=== PATIENT | female | born 1965 | race American Indian/Alaskan Native ===

== ENCOUNTER 2018-05-03 18:56 | Emergency (ER) | payer SELFPAY ==
[2018-05-03 19:37] VITALS: BP 128/83
[2018-05-03] MEDS ORDERED: NACL 0.9% 1000 ML 1,000 ML IV ONE (19:37)
[2018-05-03 20:12] LABS: Basophils # (Auto) 0.1 K/mm3 (0.0-0.1); Basophils % (Auto) 1.2 % (0.0-1.8); Eosinophils # (Auto) 0.1 K/mm3 (0.0-0.4); Eosinophils % (Auto) 0.9 % (0.0-4.3); Hematocrit 31.8 % (30.3-42.9); Hemoglobin 10.7 gm/dl (10.1-14.3); Lymphocytes # (Auto) 2.4 K/mm3 (1.2-5.4); Lymphocytes % (Auto) 27.5 % (13.4-35.0); Mean Corpuscular HGB Conc 34 % (30-34); Mean Corpuscular Volume 81 fl (79-97); Monocytes # (Auto) 0.6 K/mm3 (0.0-0.8); Monocytes % (Auto) 6.4 % (0.0-7.3); Platelet Count 372 K/mm3 (140-440); Red Blood Count 3.94 M/mm3 (3.65-5.03); Red Cell Distribution Width 14.2 % (13.2-15.2)
[2018-05-03 20:47] LABS: Alanine Aminotransferase 10 units/L (7-56); Albumin 3.8 g/dL (3.9-5); BUN/Creatinine Ratio 18; Blood Urea Nitrogen 11 mg/dL (7-17); Calcium 9.1 mg/dL (8.4-10.2); Hemolysis Index 50
[2018-05-04 01:16] LABS: Bilirubin,Urine NEG (Negative); Blood,Urine SM (Negative); Color,Urine Yellow (Yellow); Mucus,Urine 3+ /HPF; Protein,Urine <15 mg/dL mg/dL (Negative)
[2018-05-04] MEDS ORDERED: LEVSIN SL SL ONE (01:33)
[2018-05-04] MEDS ORDERED: ZOFRAN ODT PO STA (01:33)
--- NOTE | 2018-05-04 03:38 | Cat Scan Report ---
FINAL REPORT PROCEDURE: CT ABD AND PELVIS W CONTRAST TECHNIQUE: Computerized axial tomography of the abdomen and pelvis was performed after the IV inject ion of iodinated nonionic contrast. HISTORY: DIFFUSE ABD PAIN COMPARISON: No prior studies are available for comparison. FINDINGS: Visualized lower thorax: No significant abnormality. Liver: Normal size and attenuation. There is a 1 centimeter cyst the in the right lobe of the liver. Spleen: Normal size and attenuation. Gallbladder and biliary system: Normal. Pancreas: Normal. Adrenals: Normal. Kidneys: Normal. GI tract: There is no bowel obstruction. There is mucosal thickening of the right colon which could i ndicate colitis. There is no obstruction. The stomach, small bowel and appendix are normal.. Lymph nodes and mesentery: There are borderline enlarged mesenteric lymph nodes which could be reacti ve.. Vasculature: Normal. Bladder: Normal. Reproductive organs: Uterus is unremarkable. There is a large cystic mass arising from the right ovar y with septations and nodular soft tissue components. The overall size is approximately 15.6 centimet ers. Cystic ovarian neoplasm not excluded. Peritoneum: There is no ascites, free air, abscess or adenopathy.. Musculoskeletal structures: No significant abnormality. Other: None. IMPRESSION: There is a 1 centimeter cyst the in the right lobe of the liver. There is no bowel obstruction. There is mucosal thickening of the right colon which could indicate co litis. There is no obstruction. The stomach, small bowel and appendix are normal.. There are borderline enlarged mesenteric lymph nodes which could be reactive.. Uterus is unremarkable. There is a large cystic mass arising from the right ovary with septations and nodular soft tissue components. The overall size is approximately 15.6 centimeters. Cystic ovarian n eoplasm not excluded.. There is no ascites, free air, abscess or adenopathy.
[2018-05-04] MEDS ORDERED: FLAGYL PO STA (04:28)
[2018-05-04] MEDS ORDERED: LEVAQUIN PO STA (04:28)
--- NOTE | 2018-05-04 05:09 | Emergency Department Report ---
ED Abdominal Pain HPI - General Chief Complaint: Abdominal Pain Stated Complaint: STOMACH SORE Time Seen by Provider: 05/04/18 00:15 Source: patient Mode of arrival: Ambulatory Limitations: No Limitations - History of Present Illness Initial Comments: 53-year-old female presents much department complaining of a one- month history of abdominal pain off and on in the crampy sore nature. Reports over the last week. The symptoms have been progressively worsening having a decreased appetite and some complications with bowel movements off and on. Reports no nausea, vomiting, fevers, chills, sweats, weight loss. Reports no bloody diarrhea. Reported hematemesis or hematochezia. No hematuria MD Complaint: abdominal pain Location: LUQ, RLQ Migration to: no migration Severity: moderate Severity scale (0 -10): 10 Quality: aching, sharp Consistency: intermittent Worsens With: nothing Associated Symptoms: denies: nausea, vomiting, fever, hematemesis, hematuria, anorexia, syncope - Related Data Previous Rx's Medication Instructions Recorded Last Taken Type Ciprofloxacin HCl [Cipro] 500 mg PO BID #28 tablet 05/04/18 Unknown Rx Ciprofloxacin HCl [Cipro] 500 mg PO BID #28 tablet 05/04/18 Unknown Rx Hyoscyamine Subl [Levsin Sl] 0.125 mg SL Q4HR PRN #16 tablet 05/04/18 Unknown Rx Hyoscyamine Subl [Levsin Sl] 0.125 mg SL Q4HR PRN #16 tablet 05/04/18 Unknown Rx Ondansetron [Zofran ODT TAB] 8 mg PO Q12HR #14 tab.rapdis 05/04/18 Unknown Rx metroNIDAZOLE [Flagyl] 500 mg PO ONCE #4 tab 05/04/18 Unknown Rx Allergies Allergy/AdvReac Type Severity Reaction Status Date / Time No Known Allergies Allergy Verified 05/03/18 19:37 ED Review of Systems ROS: Stated complaint: STOMACH SORE Other details as noted in HPI Constitutional: denies: chills, fever Eyes: denies: eye pain, eye discharge, vision change ENT: denies: ear pain, throat pain Respiratory: denies: cough, shortness of breath, wheezing Cardiovascular: denies: chest pain, palpitations Endocrine: no symptoms reported Gastrointestinal: abdominal pain. denies: nausea, diarrhea Genitourinary: denies: urgency, dysuria, discharge Musculoskeletal: denies: back pain, joint swelling, arthralgia Skin: denies: rash, lesions Neurological: denies: headache, weakness, paresthesias Psychiatric: denies: anxiety, depression Hematological/Lymphatic: denies: easy bleeding, easy bruising ED Past Medical Hx - Past Medical History Previous Medical History?: No Hx Asthma: Yes - Surgical History Past Surgical History?: No - Social History Smoking Status: Unknown if ever smoked Substance Use Type: None - Medications Home Medications: Home Medications Medication Instructions Recorded Confirmed Last Taken Type Ciprofloxacin HCl [Cipro] 500 mg PO BID #28 tablet 05/04/18 Unknown Rx Ciprofloxacin HCl [Cipro] 500 mg PO BID #28 tablet 05/04/18 Unknown Rx Hyoscyamine Subl [Levsin Sl] 0.125 mg SL Q4HR PRN #16 tablet 05/04/18 Unknown Rx Hyoscyamine Subl [Levsin Sl] 0.125 mg SL Q4HR PRN #16 tablet 05/04/18 Unknown Rx Ondansetron [Zofran ODT TAB] 8 mg PO Q12HR #14 tab.rapdis 05/04/18 Unknown Rx metroNIDAZOLE [Flagyl] 500 mg PO ONCE #4 tab 05/04/18 Unknown Rx ED Physical Exam - General Limitations: No Limitations General appearance: alert, in no apparent distress - Head Head exam: Present: atraumatic, normocephalic - Eye Eye exam: Present: normal appearance, PERRL, EOMI Pupils: Present: normal accommodation - ENT ENT exam: Present: normal exam, mucous membranes moist - Neck Neck exam: Present: normal inspection, full ROM. Absent: tenderness, lymphadenopathy - Respiratory Respiratory exam: Present: normal lung sounds bilaterally. Absent: respiratory distress, wheezes, rales, rhonchi, chest wall tenderness, accessory muscle use, decreased breath sounds, prolonged expiratory - Cardiovascular Cardiovascular Exam: Present: regular rate, normal rhythm. Absent: systolic murmur, diastolic murmur, rubs, gallop - GI/Abdominal GI/Abdominal exam: Present: soft, tenderness, guarding, normal bowel sounds. Absent: rebound, rigid, hypoactive bowel sounds, organomegaly, bruit, pulsatile mass - Extremities Exam Extremities exam: Present: normal inspection, normal capillary refill - Back Exam Back exam: Present: normal inspection - Neurological Exam Neurological exam: Present: alert, oriented X3 - Psychiatric Psychiatric exam: Present: normal affect, normal mood - Skin Skin exam: Present: warm, dry, intact, normal color. Absent: rash ED Course Vital Signs 05/03/18 05/03/18 05/03/18 19:20 19:25 23:56 Temperature 98.6 F 98.6 F Pulse Rate 101 H 99 H Respiratory 18 18 20 Rate Blood Pressure 128/83 128/83 O2 Sat by Pulse 96 97 99 Oximetry ED Medical Decision Making - Lab Data Result diagrams: 05/03/18 19:50 05/03/18 19:50 - Radiology Data CT scan shows colitis and complex right ovarian cyst - Medical Decision Making Physical patient in detail the findings on the CT scan and the need to follow-up with [facility] and gastroenterology. She expressed understanding and stated that she would. She was follow-up. Also advised on treatment plan. Due to the colitis and ovarian cyst pain. Critical care attestation.: If time is entered above; I have spent that time in minutes in the direct care of this critically ill patient, excluding procedure time. ED Disposition Clinical Impression: Abdominal pain, Colitis Disposition: DC-01 TO HOME OR SELFCARE Is pt being admited?: No Does the pt Need Aspirin: No Condition: Stable Instructions: Abdominal Pain (ED), Infectious Colitis (ED) Referrals: REGULO GALVAN MD [Primary Care Provider] - 3-5 Days [facility] [Provider Group] - 3-5 Days
== END 2018-05-04 05:36 | disposition home or self-care (01) ==
LOC: ED 18:56
DX: K52.9 Noninfective gastroenteritis and colitis, unspecified (principal); J45.909 Unspecified asthma, uncomplicated
CPT/HCPCS: 36415; 74177; 80053; 81001; 83690; 85025; 99284; Q9967; Q0162

== ENCOUNTER 2018-06-27 19:41 | Inpatient (IN) | payer SELFPAY ==
[2018-06-27] MEDS ORDERED: NACL 0.9% 1000 ML 1,000 ML IV ONE (20:20)
[2018-06-27 21:15] LABS: Basophils % (Auto) 0.5 % (0.0-1.8); Eosinophils # (Auto) 0.1 K/mm3 (0.0-0.4); Eosinophils % (Auto) 1.1 % (0.0-4.3); Hemoglobin 10.6 gm/dl (10.1-14.3); Lymphocytes # (Auto) 1.6 K/mm3 (1.2-5.4); Lymphocytes % (Auto) 18.6 % (13.4-35.0); Mean Corpuscular HGB Conc 33 % (30-34); Mean Corpuscular Volume 79 fl (79-97); Monocytes # (Auto) 0.8 K/mm3 (0.0-0.8); Monocytes % (Auto) 9.3 % (0.0-7.3); Platelet Count 479 K/mm3 (140-440); Red Blood Count 4.07 M/mm3 (3.65-5.03); Red Cell Distribution Width 15.9 % (13.2-15.2)
[2018-06-27 21:34] LABS: Alanine Aminotransferase 10 units/L (7-56); BUN/Creatinine Ratio 14; Blood Urea Nitrogen 7 mg/dL (7-17); Calcium 9.1 mg/dL (8.4-10.2); Hemolysis Index 3
--- NOTE | 2018-06-27 22:04 | Emergency Department Report ---
ED Abdominal Pain HPI - General Chief Complaint: Abdominal Pain Stated Complaint: ABD PAIN Time Seen by Provider: 06/27/18 21:52 Source: patient Mode of arrival: Ambulatory Limitations: No Limitations - History of Present Illness Initial Comments: Mrs. Orozco is a very pleasant 53 yo female who presents with 1 1/2 months of abdominal pain, distention, weight loss and constipation. Has had severe constipation since February. She can not recall her last bowel movement. Her weight has declined from 210 pounds to 165 pounds over the course of 2 months. She has poor appetite. Even water causes severe heart burn. She has severe RLQ pain worse with eating, constant. No PCP. In April, CT revealed mucosal thickening right colon. Treated for colitis with ciprofloxacin. MD Complaint: abdominal pain -: Gradual, month(s) (2) Location: LLQ Radiation: none Severity: severe Severity scale (0 -10): 10 Quality: cramping Consistency: constant Worsens With: eating Context: other (as per HPI) Associated Symptoms: nausea, vomiting, constipation - Related Data Previous Rx's Medication Instructions Recorded Last Taken Type Ciprofloxacin HCl [Cipro] 500 mg PO BID #28 tablet 05/04/18 Unknown Rx Ciprofloxacin HCl [Cipro] 500 mg PO BID #28 tablet 05/04/18 Unknown Rx Hyoscyamine Subl [Levsin Sl] 0.125 mg SL Q4HR PRN #16 tablet 05/04/18 Unknown Rx Hyoscyamine Subl [Levsin Sl] 0.125 mg SL Q4HR PRN #16 tablet 05/04/18 Unknown Rx Ondansetron [Zofran ODT TAB] 8 mg PO Q12HR #14 tab.rapdis 05/04/18 Unknown Rx metroNIDAZOLE [Flagyl] 500 mg PO ONCE #4 tab 05/04/18 Unknown Rx Allergies Allergy/AdvReac Type Severity Reaction Status Date / Time No Known Allergies Allergy Verified 05/03/18 19:37 ED Review of Systems ROS: Stated complaint: ABD PAIN Other details as noted in HPI Comment: All other systems reviewed and negative Constitutional: malaise, other (50 pound weight loss) Gastrointestinal: abdominal pain, nausea, constipation ED Past Medical Hx - Past Medical History Previous Medical History?: No Hx Asthma: Yes - Surgical History Past Surgical History?: No - Social History Smoking Status: Never Smoker Substance Use Type: None Other Social History: 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 - Medications Home Medications: Home Medications Medication Instructions Recorded Confirmed Last Taken Type Ciprofloxacin HCl [Cipro] 500 mg PO BID #28 tablet 05/04/18 Unknown Rx Ciprofloxacin HCl [Cipro] 500 mg PO BID #28 tablet 05/04/18 Unknown Rx Hyoscyamine Subl [Levsin Sl] 0.125 mg SL Q4HR PRN #16 tablet 05/04/18 Unknown Rx Hyoscyamine Subl [Levsin Sl] 0.125 mg SL Q4HR PRN #16 tablet 05/04/18 Unknown Rx Ondansetron [Zofran ODT TAB] 8 mg PO Q12HR #14 tab.rapdis 05/04/18 Unknown Rx metroNIDAZOLE [Flagyl] 500 mg PO ONCE #4 tab 05/04/18 Unknown Rx ED Physical Exam - General Limitations: No Limitations General appearance: alert, in no apparent distress - Head Head exam: Present: atraumatic, normocephalic - Eye Eye exam: Present: normal appearance - ENT ENT exam: Present: mucous membranes moist - Neck Neck exam: Present: normal inspection - Respiratory Respiratory exam: Present: normal lung sounds bilaterally. Absent: respiratory distress - Cardiovascular Cardiovascular Exam: Present: regular rate, normal rhythm. Absent: systolic murmur, diastolic murmur, rubs, gallop - GI/Abdominal GI/Abdominal exam: Present: soft, distended, normal bowel sounds. Absent: tenderness, guarding, rebound - Extremities Exam Extremities exam: Present: normal inspection - Back Exam Back exam: Present: normal inspection - Neurological Exam Neurological exam: Present: alert, oriented X3 - Psychiatric Psychiatric exam: Present: normal affect, normal mood - Skin Skin exam: Present: warm, dry, intact, normal color. Absent: rash ED Course Vital Signs 06/27/18 06/27/18 19:56 20:18 Temperature 99.4 F 99.4 F Pulse Rate 103 H 105 H Respiratory 18 18 Rate Blood Pressure 114/76 114/76 O2 Sat by Pulse 99 96 Oximetry ED Medical Decision Making - Lab Data Result diagrams: 06/27/18 20:52 06/27/18 20:52 - Radiology Data Radiology results: report reviewed - Medical Decision Making Mrs. Orozco is a 53 yo female who presents with 50 pound weight loss over [address] a/p reveals ovarian malignancy, very large tumor. Admitted to hospitalist service. I discussed case with Dr. Catalan. I provided bridging orders. Critical care attestation.: If time is entered above; I have spent that time in minutes in the direct care of this critically ill patient, excluding procedure time. ED Disposition Clinical Impression: Ovarian cancer, Abdominal pain, Weight loss, Obstipation Disposition: OP ADMIT IP TO THIS HOSP Is pt being admited?: Yes Does the pt Need Aspirin: No Condition: Stable
[2018-06-27 22:10] LABS: Bilirubin,Urine NEG (Negative); Blood,Urine MOD (Negative); Color,Urine Amber (Yellow); Mucus,Urine FEW /HPF
[2018-06-27] MEDS ORDERED: MORPHINE ONE (22:41)
[2018-06-27] MEDS ORDERED: ZOFRAN ONE (22:41)
[2018-06-27] MEDS ORDERED: ZOFRAN IV ONE (23:02)
[2018-06-27] MEDS ORDERED: MORPHINE IV ONE (23:02)
[2018-06-28] MEDS ORDERED: MORPHINE IV ONE ×2 (01:15→03:06)
[2018-06-28] MEDS ORDERED: MORPHINE ONE (01:18)
--- NOTE | 2018-06-28 04:39 | Cat Scan Report ---
PROCEDURE: CT ABDOMEN PELVIS W CON TECHNIQUE: Routine axial imaging was obtained of the abdomen and pelvis following the intravenous in jection of iodinated contrast. Sagittal and coronal reconstructions were reviewed. Comparison is made to the study of 05/04/2018. HISTORY: abdominal pain weight loss obstipation COMPARISONS: 05/04/2018 FINDINGS: The lung bases are clear. Pleural fluid is not seen. The liver is normal size and reveals a stable 8 mm low-density lesion in the right hepatic lobe. Whet her this represents a small cyst or hemangioma is uncertain. The gallbladder and biliary tree appear normal. The pancreas, spleen and adrenal glands appear normal. The kidneys enhance normally. There is no evidence of hydronephrosis. In the pelvis above the bladder is a cystic mass measuring 16.2 x 12.2 x 15.8 cm. Along the periphery of the mass anteriorly is a soft tissue component which is partially calcified. There are septations within this lesion. It has enlarged since the previous study. It compresses the uterus and bladder. It displaces bowel loops laterally. The bowel loops are not distended. The appendix is not enlarged. There is a small amount of free fluid in the right paracolic gutter. The abdominal aorta is normal in caliber. The portal vein enhances normally. The skeletal structures otherwise do not show acute crowell ges. IMPRESSION: Large predominantly cystic septated mass in the pelvis with peripheral solid component and calcificat ions which has enlarged since the previous study. This is an ovarian malignancy until proven otherwis e. Small amount of free fluid along the right paracolic gutter. No evidence of bowel obstruction or ileus or appendicitis. 8 mm low-density focus in the right hepatic lobe unchanged from the previous study. Whether this repr esents a small cyst or hemangioma is uncertain.. This document is electronically signed by Sam Jose MD., June 28 2018 04:36:29 AM ET
--- NOTE | 2018-06-28 07:35 | History and Physical Report ---
History of Present Illness Date of examination: 06/28/18 Chief complaint: Abdominal pains History of present illness: Patient is a 53 yo woman with a history of Asthma who presented to [facility] ED with Abdominal pains. Initially she came here on 05/04/2018 with abdominal pains and had CT abd/pelvis with IV contrast that showed 1 cm Right Liver lesion, right colitis, borderline enlarged mesenteric lymph nodes and large cystic mass from the right ovary, cystic ovarian neoplasm not excluded. She was discharged home with ciprofloxacin and instructions to follow up with shank stitcher and GI. Now, she comes back to this ED on the night of 06/27/2018 with progressively worsening severe, LLQ/flank, nonradiating, crampy constant abdominal pains aggravated by eating associated by early satiey, N/V, constipation, abdominal mass and weight loss from 210 lbs to 166 lbs in 2 months. She doesn't mention any relieving factors. She had severe constipation since February 2018. PMH: as hpi PSH: Denies SH: no t/e/illicit drugs FH: hypertension, mother of HD lymphoma, brother of throat cancer, ROS: Constitutional: denies: fever +malaise ENT: denies: throat or neck pain Respiratory: denies: cough, shortness of breath Cardiovascular: denies: chest pain Endocrine: +weight loss Gastrointestinal: + abdominal pain, nausea no heartburn but early satiety Genitourinary: denies: dysuria Rectal: denies no incontinence, no bleeding, no itching, no discharge Musculoskeletal: denies swelling, myaglia, +gen muscle weakness Skin: denies: rash Neurological: denies: headache Hematological/Lymphatic: denies: easy bleeding or easy bruising Allergic/Immunologic: no urticaria, no allergic rhinitis, no anaphylaxis Psych: denies sadness or hopelessness, SI/HI Medications and Allergies Allergies Allergy/AdvReac Type Severity Reaction Status Date / Time No Known Allergies Allergy Verified 05/03/18 19:37 Home Medications Medication Instructions Recorded Confirmed Last Taken Type Ciprofloxacin HCl [Cipro] 500 mg PO BID #28 tablet 05/04/18 Unknown Rx Ciprofloxacin HCl [Cipro] 500 mg PO BID #28 tablet 05/04/18 Unknown Rx Hyoscyamine Subl [Levsin Sl] 0.125 mg SL Q4HR PRN #16 tablet 05/04/18 Unknown Rx Hyoscyamine Subl [Levsin Sl] 0.125 mg SL Q4HR PRN #16 tablet 05/04/18 Unknown Rx Ondansetron [Zofran ODT TAB] 8 mg PO Q12HR #14 tab.rapdis 05/04/18 Unknown Rx metroNIDAZOLE [Flagyl] 500 mg PO ONCE #4 tab 05/04/18 Unknown Rx Exam - Physical Exam Narrative exam: Gen: WDWN, NAD, Awake, Alert, Orientated HEENT: NCAT, EOMI, PERRL, OP Clear Neck: supple, no adenopathy, no thyromegaly, no JVD CVS/Heart: RRR, normal S1S2, pulses present bilaterally Chest/Lungs: CTA B, Symmetrical chest expansion, good air entry bilaterally GI/Abdomen: Large left quandrant hard mass, NT, good bowel sounds, no guarding or rebound /Bladder: no suprapubic tenderness, no CVA or paraspinal tenderness Extermity/Skin: no c/c/e, no obvious rash MSK: FROM x 4 Neuro: CN 2-12 grossly intact, no new focal deficits Psych: calm - Constitutional Vitals: Temp Pulse Resp BP Pulse Ox 99.4 F 70 19 111/71 97 06/27/18 20:18 06/28/18 03:45 06/28/18 03:45 06/28/18 06:45 06/28/18 06:45 Results - Labs CBC & Chem 7: 06/27/18 20:52 06/27/18 20:52 Labs: Abnormal lab results 06/27/18 06/27/18 06/27/18 Range/Units 20:52 20:52 21:05 MCH 26 L (28-32) pg RDW 15.9 H (13.2-15.2) % Plt Count 479 H (140-440) K/mm3 [place] % (Auto) 9.3 H (0.0-7.3) % Seg Neutrophils % 70.5 H (40.0-70.0) % Potassium 3.1 L (3.6-5.0) mmol/L Chloride 96.3 L (98-107) mmol/L Creatinine 0.5 L (0.7-1.2) mg/dL Glucose 125 H (65-100) mg/dL Urine WBC (Auto) 13.0 H (0.0-6.0) /HPF Assessment and Plan Patient is a 53 yo woman with a history of Asthma who presented to [facility] ED with Abdominal pains. Initially she came here on 05/04/2018 with abdominal pains and had CT abd/pelvis with IV contrast that showed 1 cm Right Liver lesion, right colitis, borderline enlarged mesenteric lymph nodes and large cystic mass from the right ovary, cystic ovarian neoplasm not excluded. She was discharged home with ciprofloxacin and instructions to follow up with shank stitcher and GI, which she has not arranged. Now, she comes back to this ED on the night of 06/27/2018 with progressively worsening severe, LLQ/flank, nonradiating, crampy constant abdominal pains aggravated by eating associated by early satiey, N/V, constipation, abdominal mass and weight loss from 210 lbs to 166 lbs in 2 months. She doesn't mention any relieving factors. She had severe constipation since February 2018. * 06/28/2018 CT abd/pelvis with contrast IMPRESSION: Large predominantly cystic septated mass in the pelvis with peripheral solid component and calcifications which has enlarged since the previous study. This is an ovarian malignancy until p roven otherwise. Small amount of free fluid along the right paracolic gutter. No evidence of bowel obstruction or ileus or appendicitis. 8 mm low- density focus in the right hepatic lobe unchanged from the previous study. Whether this represents a small cyst or hemangioma is uncertain.. -Abdominal pains due to suspected New Ovarian Cancer: Consult clock repairer, ca 125, also get cea, ca 19-9, transvaginal us -UTI; get urine culture, treat with IV rocephin -Hypokalemia: replete and recheck in am -Unintentional weight loss related to suspected Cancer: consult clock repairer -Abd mass with early satiety: related to above -Constipation: laxative -DVT/GI prophylaxis: sq lovenox and Protonix Home Reconciliation: Done Diet: start with liquids due to Early satiety and advance as tolerate Full code
[2018-06-28] MEDS ORDERED: MIRALAX 3350 PO PRN (09:04)
[2018-06-28] MEDS ORDERED: MORPHINE IV PRN (09:46)
[2018-06-28] MEDS ORDERED: DULCOLAX PR ONE (10:00)
[2018-06-28] MEDS ORDERED: K-DUR PO ONE (10:00)
[2018-06-28] MEDS ORDERED: ROCEPHIN/NS 1 GM/50 ML 1 GM/50 ML BAG IV SCH (11:00)
--- NOTE | 2018-06-28 13:26 | Ultrasound Report ---
ULTRASOUND TRANSVAGINAL HISTORY: Ovarian mass. COMPARISON: CT abdomen pelvis with contrast dated 06/28/18. TECHNIQUE: Transvaginal ultrasound with color doppler interrogation. FINDINGS: Uterus: The uterus is normal size, contour and echotexture measuring 8.7 x 3.0 x 3.4 cm. No evidence for uterine fibroid disease. Endometrium: Normal. The endometrium measures 6 mm in thickness. Right ovary: There is a large cystic mass measuring up to 13 cm in the right adnexa. There is mild internal debris and a few small septations. No calcifications. Left ovary: Not visualized. The left ovary is unremarkable on the CT performed the same day. No pelvic fluid or mass is identified. Spectral wave forms demonstrate arterial flow to the right ovary/adnexal lesion. IMPRESSION: Predominantly cystic right ovarian lesion as outlined above. A benign cystic right ovarian neoplasm is suspected.
--- NOTE | 2018-06-28 14:39 | Consultation ---
History of Present Illness - Reason for Consult Consult date: 06/28/18 Requesting physician: YAHAIRA RAY - History of Present Illness Patient is a 53 year old , LMP in 2016 who presented to the ER last night complaining of having pelvic pain which started 3 weeks ago and has been getting worse. She denied any fever, vomiting, change in her appetite but she reported a 50-lb weight loss over the past 2 months and constipation. She also denied any post menopausal bleeding. She had a pelvic CT scan which showed the uterus to measure 8.7 x 3.4 x 3 cm, stripe 6 mm, a large mass measuring 16.2 x 15.8 x 12.2 cm, an 8-mm liver lesion. She was admitted for pain medication which made her feel better. Now, she appears comfortable. She was admitted 2 months ago for similar pain. She had an abdominal CT scan which showed the same pelvic mass. At that time, she was discharged home and told to follow up with her spray gunner. The patient states that she used to go to [facility] and her last visit there was a few years ago. Since her discharge 2 months ago, she has not made any appointment to be seen for the pelvic mass. Past History Past Medical History: No medical history Past Surgical History: No surgical history Social history: no significant social history Family history: no significant family history Medications and Allergies Allergies Allergy/AdvReac Type Severity Reaction Status Date / Time No Known Allergies Allergy Verified 05/03/18 19:37 Home Medications Medication Instructions Recorded Confirmed Last Taken Type Ciprofloxacin HCl [Cipro] 500 mg PO BID #28 tablet 05/04/18 Unknown Rx Ciprofloxacin HCl [Cipro] 500 mg PO BID #28 tablet 05/04/18 Unknown Rx Hyoscyamine Subl [Levsin Sl] 0.125 mg SL Q4HR PRN #16 tablet 05/04/18 Unknown Rx Hyoscyamine Subl [Levsin Sl] 0.125 mg SL Q4HR PRN #16 tablet 05/04/18 Unknown Rx Ondansetron [Zofran ODT TAB] 8 mg PO Q12HR #14 tab.rapdis 05/04/18 Unknown Rx metroNIDAZOLE [Flagyl] 500 mg PO ONCE #4 tab 05/04/18 Unknown Rx Active Meds: Active Medications Ceftriaxone Sodium (Rocephin/Ns 1 Gm/50 Ml) 1 gm in 50 mls @ 100 mls/hr IV Q24HR GREGORY; Protocol Last Admin: 06/28/18 14:13 Dose: 100 mls/hr Documented by: Morphine Sulfate (Morphine) 2 mg IV Q4H PRN PRN Reason: Pain, Moderate (4-6) Last Admin: 06/28/18 10:22 Dose: 2 mg Documented by: Polyethylene Glycol (Miralax 3350) 17 gm PO QDAY PRN PRN Reason: Constipation Last Admin: 06/28/18 09:40 Dose: 17 gm Documented by: Exam - Constitutional Vitals: Temp Pulse Resp BP Pulse Ox 98.4 F 76 20 119/67 91 06/28/18 11:19 06/28/18 11:19 06/28/18 11:19 06/28/18 11:19 06/28/18 11:19 General appearance: Present: no acute distress - Respiratory Respiratory: negative: CTA - Cardiovascular Heart Sounds: Present: S1 & S2 - Extremities Extremities: no ischemia, pulses intact, pulses symmetrical, No edema, Full ROM - Abdominal General gastrointestinal: Present: tender, distended Localized gastrointestinal: tender: RUQ, RLQ, mass: LUQ, RLQ Female genitourinary: Present: other (Large pelvic mass, unable to assess the uterus size due to mass effect.) Results - Labs CBC & Chem 7: 06/27/18 20:52 06/27/18 20:52 Labs: Abnormal lab results 06/27/18 06/27/18 06/27/18 Range/Units 20:52 20:52 21:05 MCH 26 L (28-32) pg RDW 15.9 H (13.2-15.2) % Plt Count 479 H (140-440) K/mm3 Cole % (Auto) 9.3 H (0.0-7.3) % Seg Neutrophils % 70.5 H (40.0-70.0) % Potassium 3.1 L (3.6-5.0) mmol/L Chloride 96.3 L (98-107) mmol/L Creatinine 0.5 L (0.7-1.2) mg/dL Glucose 125 H (65-100) mg/dL Lactate Dehydrogenase (91-180) units/L Urine WBC (Auto) 13.0 H (0.0-6.0) /HPF 06/28/18 Range/Units 12:48 MCH (28-32) pg RDW (13.2-15.2) % Plt Count (140-440) K/mm3 Cole % (Auto) (0.0-7.3) % Seg Neutrophils % (40.0-70.0) % Potassium (3.6-5.0) mmol/L Chloride (98-107) mmol/L Creatinine (0.7-1.2) mg/dL Glucose (65-100) mg/dL Lactate Dehydrogenase 198 H (91-180) units/L Urine WBC (Auto) (0.0-6.0) /HPF - Imaging and Cardiology CT scan - abdomen: report reviewed Assessment and Plan - Patient Problems (1) Pelvic mass Current Visit: Yes Status: Acute Plan to address problem: Tumor markers ordered. I told the patient that she needs surgery and she need to see a spray gun striper oncologist for such surgery since the pelvic mass is likely to be malignant. I told her that once she is discharged home, to go to [facility] so that referral can be arranged for her to see the spray gun striper oncologist. Patient may be discharged home by the medical team if she is comfortable. Please ask her to call . (2) Abdominal pain Current Visit: Yes Status: Acute (3) Weight loss Current Visit: Yes Status: Acute
--- NOTE | 2018-06-28 17:01 | Discharge Summary ---
Providers - Providers Date of Admission: 06/28/18 05:12 Date of discharge: 06/28/18 Attending physician: YAHAIRA RAY 06/28/18 08:53 Consult to Physician [CONS] Routine Comment: Consulting Provider: OLE ROCHE Physician Instructions: Reason For Exam: Evaluate for ovarian cancer [facility] Condition[facility] Hospital course: radha is a 53 yo woman with a history of Asthma who presented to [facility] ED with Abdominal pains. Initially she came here on 05/04/2018 with abdominal pains and had CT abd/pelvis with IV contrast that showed 1 cm Right Liver lesion, right colitis, borderline enlarged mesenteric lymph nodes and large cystic mass from the right ovary, cystic ovarian neoplasm not excluded. She was discharged home with ciprofloxacin and instructions to follow up with information technology technician and GI, which she has not arranged. Now, she comes back to this ED on the night of 06/27/2018 with progressively worsening severe, LLQ/flank, nonradiating, crampy constant abdominal pains aggravated by eating associated by early satiey, N/V, constipation, abdominal mass and weight loss from 210 lbs to 166 lbs in 2 months. She doesn't mention any relieving factors. She had severe constipation since February 2018. * 06/28/2018 CT abd/pelvis with contrast IMPRESSION: Large predominantly cystic s eptated mass in the pelvis with peripheral solid component and calcifications which has enlarged since the previous study. This is an ovarian malignancy until p roven otherwise. Small amount of free fluid along the right paracolic gutter. No evidence of bowel obstruction or ileus or appendicitis. 8 mm low- density focus in the right hepatic lobe unchanged from the previous study. Whether this represents a small cyst or hemangioma is uncertain.. -Abdominal pains due to suspected New Ovarian Cancer: Consult aquacultural worker supervisor, ca 125, also get cea, ca 19-9, transvaginal us -UTI; get urine culture, treat with IV rocephin -Hypokalemia: replete and recheck in am -Unintentional weight loss related to suspected Cancer: consult aquacultural worker supervisor -Abd mass with early satiety: related to above -Constipation: laxative -DVT/GI prophylaxis: sq lovenox and Protonix Home Reconciliation: Done Diet: start with liquids due to Early satiety and advance as tolerate Full code d/w Dr. Verpile, aquacultural worker supervisor, d/c home today and pt to see her in the office tomorrow. She will follow up tumor marker, she add a few also. Patient most likely need to see data lead Oncologist which is not here. Disposition: DC-01 TO HOME OR SELFCARE Time spent for discharge: 35 minutes Core Measure Documentation - Palliative Care Palliative Care/ Comfort Measures: Not Applicable - Core Measures Any of the following diagnoses?: none - VTE Discharge Requirements Deep Vein Thrombosis/Pulmonary Embolism Present on Admission: No Has pt received <5 days of overlap therapy or INR<2.0: No Anticoagulant overlap therapy prescribed at discharge: No Contraindication No Overlap Therapy order at DC: Not Indicated Exam - Physical Exam Narrative exam: Gen: WDWN, NAD, Awake, Alert, Orientated HEENT: NCAT, EOMI, PERRL, OP Clear Neck: supple, no adenopathy, no thyromegaly, no JVD CVS/Heart: RRR, normal S1S2, pulses present bilaterally Chest/Lungs: CTA B, Symmetrical chest expansion, good air entry bilaterally GI/Abdomen: Large left quandrant hard mass, NT, good bowel sounds, no guarding or rebound /Bladder: no suprapubic tenderness, no CVA or paraspinal tenderness Extermity/Skin: no c/c/e, no obvious rash MSK: FROM x 4 Neuro: CN 2-12 grossly intact, no new focal deficits Psych: calm - Constitutional Vitals: Temp Pulse Resp BP Pulse Ox 98.4 F 76 20 119/67 91 06/28/18 11:19 06/28/18 11:19 06/28/18 11:19 06/28/18 11:19 06/28/18 11:19 Plan Activity: other (no strenous activity) Diet: clear liquids, advance as tolerated Additional Instructions: 1) Call Dr. Mohan Manzo for first available appointment. Obstetrics & gynecology - gynecologic oncology. [address] [place] [address] [address], [place] [address]. [phone]. 2) Take CD rom copy of Cat Scans to Dr. Manzo. 3) Follow up tumor markers with Dr. Roche Follow up with: KENN ELAM MD [Primary Care Provider] - 7 Days OLE ROCHE MD [Staff Physician] - 06/29/18 Prescriptions: Ciprofloxacin HCl [Ciprofloxacin TAB] 500 mg PO BID #10 tab Bisacodyl [Dulcolax suppos] 10 mg [place] QDAY PRN #10 supp.rect PRN Reason: Constipation Polyethylene Glycol 3350 [Miralax 3350] 17 gm PO QDAY PRN #30 powd.pack PRN Reason: Constipation Oxycodone HCl/Acetaminophen [Percocet 10/325 mg] 1 each PO Q6HR PRN #25 tablet PRN Reason: Pain , Severe (7-10)
[2018-06-28 17:40] VITALS: BP 141/85
[2018-06-28] MEDS ORDERED: PERCOCET 5/325 PO ONE (17:43)
[2018-06-29] MEDS ORDERED: AFLURIA QUAD 2018-2019 SYRINGE IM ONE (12:00)
== END 2018-06-28 19:23 | disposition home or self-care (01) | DRG 755 ==
LOC: ED 19:41 → 3A 06-28 05:12
PROVIDERS: ADMIT Internal Medicine; ATTEND Internal Medicine
DX: C56.9 Malignant neoplasm of unspecified ovary (principal); N39.0 Urinary tract infection, site not specified; R63.4 Abnormal weight loss; K59.00 Constipation, unspecified; J45.909 Unspecified asthma, uncomplicated; E87.6 Hypokalemia; R19.00 Intra-abdominal and pelvic swelling, mass and lump, unspecified site; Z68.32 Body mass index [BMI] 32.0-32.9, adult; Z79.899 Other long term (current) drug therapy; Z82.49 Family history of ischemic heart disease and other diseases of the circulatory system; Z80.8 Family history of malignant neoplasm of other organs or systems
CPT/HCPCS: 36415; 74177; 76817; 80053; 81001; 82106; 82378; 83615; 83690; 84702; 85025; 86301; 86304; 87086; G0378; J0696; J2270; J2405; J7030; Q9967